=== PATIENT | male | born 1995 | race Caucasian/White ===

== ENCOUNTER 2020-12-26 13:46 | Outpatient (CLI) | payer OTHER, SELFPAY ==
--- NOTE | ~2020-12-26 | US_ITS ---
EXAMINATION: US scrotum doppler DATE: 12/26/2020 14:31 INDICATION: Testicular mass. TECHNIQUE: Grayscale and Doppler ultrasound images of the testes were obtained. COMPARISON: None. FINDINGS: The right testis measures 3.9 x 3.9 x 3.0 cm. The left testis measures 4.7 x 3.1 x 3.5 cm. There is a 2.9 x 2.4 x 2.3 cm hypoechoic mass with internal vascular flow in left testicle. There is normal vascular flow to both testes. The right epididymis is normal with normal vascular flow. The le ft epididymis demonstrates a 1.9 cm cyst. There is no varicocele or hydrocele. IMPRESSION: 1. 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 Reviewed, dictated and finalized at location A.
== END 2020-12-26 13:47 | disposition home or self-care (01) ==
PROVIDERS: PCP Family Medicine; Visit Provider Physician Assistant Medical
DX: N50.89 Other specified disorders of the male genital organs (principal); R93.89 Abnormal findings on diagnostic imaging of other specified body structures; D49.59 Neoplasm of unspecified behavior of other genitourinary organ
CPT/HCPCS: 76870; 93976

== ENCOUNTER → 2021-01-19 09:45 | Outpatient (CLI) | payer OTHER, SELFPAY ==
--- NOTE | ~2021-01-19 | XR_ITS ---
EXAMINATION: XR chest 2V 01/19/2021 10:29 INDICATION: Seminoma of the testes. PROCEDURE: 2 view chest COMPARISON: No prior studies for comparison. FINDINGS: The lungs are clear. The cardiomediastinal silhouette is within normal limits. There are no pleural effusions. There is no pneumothorax suspected. IMPRESSION: 1: NO ACUTE CARDIOPULMONARY DISEASE. Reviewed, dictated and finalized at location B.
--- NOTE | ~2021-01-19 | CT_ITS ---
EXAMINATION: CT abdomen pelvis w con DATE: 01/19/2021 10:12 INDICATION: Seminoma of testicle. TECHNIQUE: Computed tomography (CT) of the abdomen and pelvis was performed with 100 mL Omnipaque 350 intravenous contrast. Automated exposure control and iterative reconstruction technique were employe d. The dose-length product was 545.79 mGy-cm. COMPARISON: Ultrasound 12/26/2020 FINDINGS: The visualized portions of the lung bases and straight minimal atelectasis. No pleural effu james. The heart size is normal. No pericardial effusion. The liver, gallbladder, spleen, pancreas, ad renal glands, and kidneys are normal. The prostate is moderately enlarged. There are no dilated loops of bowel. The appendix is normal. There are no pathologically enlarged lymph nodes. There is no free intraperitoneal fluid. There is a small right inguinal hernia containing fat. The bones are unremark able. IMPRESSION: 1. No evidence of metastatic disease. Reviewed, dictated and finalized at location A.
== END ==
PROVIDERS: Visit Provider Urology
DX: C62.90 Malignant neoplasm of unspecified testis, unspecified whether descended or undescended (principal)
CPT/HCPCS: 71046; 74177; Q9967

== ENCOUNTER 2025-06-10 09:32 | Outpatient (CLI) | payer BC, SELFPAY ==
--- NOTE | ~2025-06-10 | CT_ITS ---
EXAMINATION: CT abdomen w con DATE: 06/10/2025 10:07 INDICATION: Other specified diseases of pancreas. TECHNIQUE: Computed tomography (CT) of the abdomen was performed with 100 mL Omnipaque 350 intravenous contrast. Automated exposure control and iterative reconstruction technique were employed. The dose-length product was 191.08 mGy-cm. COMPARISON: CT abdomen and pelvis 01/19/2021 FINDINGS: The visualized portions of the lung bases are clear without pneumonia or pleural effusion. The heart size is normal. No pericardial effusion. The liver, gallbladder, spleen, pancreas, adrenal glands, and kidneys are normal. There are no dilated loops of bowel. There are no pathologically enlarged lymph nodes. There is no free intraperitoneal fluid. There is mild lumbar spondylosis. IMPRESSION: 1. Normal pancreas. Reviewed, dictated and finalized at location E. IMPRESSION: 1. Normal pancreas.
== END 2025-06-10 09:33 | disposition home or self-care (01) ==
PROVIDERS: PCP Family Medicine; Visit Provider Family Medicine
DX: K86.89 Other specified diseases of pancreas (principal)
CPT/HCPCS: 74160; Q9967